=== PATIENT | female | born 1955 | race Caucasian/White ===

== ENCOUNTER 2016-11-04 20:55 | Emergency (ER) | payer MEDICAID, OTHER ==
[~2016-11-04] VITALS: Ht 157.5 cm; Wt 55.3 kg
[~2016-11-04 20:55] MED LIST: LEVO0.124 PO; MEDS FOR DEPRESSION
[2016-11-04 21:49] VITALS: BP 156/99
--- NOTE | 2016-11-04 23:10 | NUR ---
Patient to bed 02.
--- NOTE | 2016-11-04 23:11 | NUR ---
PT PICKED DAVINA 2 WEEKS AGO AND HAS SPLINTERS ON TWO LEFT FINGERS AND RT RING FINGER AND THEY ARE VERY PAINFUL MEDICAL HX; HYPOTHYROID AND GASTRITIS
[2016-11-04] MEDS ORDERED: LIDOCAINE 1% 500 MG/50 ML VIAL INJ ONE (23:15)
--- NOTE | 2016-11-04 23:15 | NUR ---
Dr. Dominguez evaluating patient at bedside.
[2016-11-05 00:29] VITALS: BP 136/89
--- NOTE | 2016-11-05 00:29 | NUR ---
Patient discharged with v/s stable. Written and verbal after care instructions given and explained. Patient alert, oriented and verbalized understanding of instructions. Ambulatory with steady gait. All questions addressed prior to discharge. ID band removed. Patient advised to follow up with PMD. Rx of MOTRIN 800MG AND BACTRIM DS given. Patient educated on indication of medication including possible reaction and side effects. Opportunity to ask questions provided and answered.
== END 2016-11-05 00:29 | disposition home or self-care (01) ==
LOC: MED 20:55
DX: S60.453A Superficial foreign body of left middle finger, initial encounter (principal); S60.455A Superficial foreign body of left ring finger, initial encounter; S60.454A Superficial foreign body of right ring finger, initial encounter; E03.9 Hypothyroidism, unspecified; W45.8XXA Other foreign body or object entering through skin, initial encounter; Y93.89 Activity, other specified; Y92.89 Other specified places as the place of occurrence of the external cause; Y99.8 Other external cause status
CPT/HCPCS: 99284; J2001

== ENCOUNTER 2016-11-08 15:19 | Emergency (ER) | payer MEDICAID ==
[~2016-11-08] VITALS: Ht 154.9 cm; Wt 55.4 kg
[~2016-11-08 15:19] MED LIST changes: -LEVO0.124 PO; +SYNTHROID0.125 M1 PO
[2016-11-08 15:27] VITALS: BP 118/57
--- NOTE | 2016-11-08 17:25 | NUR ---
61/F PRESENT TO ER C/O BILATERAL HAND PAIN x 4 DAYS. PT STATES SHE GOT SPLINTERS 4 DAYS AGO. PT IS TAKING PAIN MEDS IBUPROFEN AND ABX SEPTRA AT THIS TIME.PT AAOX4;NO ACUTE DISTRESS NOTED AT THIS TIME;SKIN WARM TO TOUCH;HOB ELEVATED;NEEDS ATTENDED;SAFETY PRECAUTION INSTITUTED; MADE AWARE OF PT'S CONDITION.
--- NOTE | 2016-11-08 17:30 | NUR ---
DR JEAN-BAPTISTE AT BEDSIDE
[2016-11-08] MEDS ORDERED: HYDROcodone/APAP 5/325 MG 1 TAB TAB PO ONE (17:35)
[2016-11-08 18:10] VITALS: BP 116/56
== END 2016-11-08 18:10 | disposition home or self-care (01) ==
LOC: MED 15:19
DX: G62.9 Polyneuropathy, unspecified (principal); R03.0 Elevated blood-pressure reading, without diagnosis of hypertension

== ENCOUNTER 2016-11-17 11:53 | Emergency (ER) | payer MEDICAID ==
[~2016-11-17] VITALS: Ht 157.5 cm; Wt 54.9 kg
[~2016-11-17 11:53] MED LIST changes: +LEVO0.124 PO; -SYNTHROID0.125 M1 PO
[2016-11-17 12:05] VITALS: BP 118/75
--- NOTE | 2016-11-17 12:12 | NUR ---
Dr. Butterfield evaluating patient in OF.
--- NOTE | 2016-11-17 12:23 | NUR ---
Patient taken to XRAY from ED lobby via wheelchair by tech.
[2016-11-17 12:39] LABS: BASOPHILS # (AUTO) 0.1 K/uL (0.00-0.22); BASOPHILS % (AUTO) 1.2 % (0.0-2.0); EOSINOPHILS # (AUTO) 0.1 K/uL (0-0.4); EOSINOPHILS % (AUTO) 1.9 % (0.0-4.0); HEMATOCRIT 34.4 % (36-48); HEMOGLOBIN 11.4 g/dL (12.0-16.0); LYMPHOCYTES # (AUTO) 1.3 K/uL (2.5-16.5); LYMPHOCYTES % (AUTO) 23.7 % (20.5-51.1); MEAN CORPUSCULAR HEMOGLOBIN 29 pg (27-31); MEAN CORPUSCULAR HGB CONC 33 g/dL (33-37); MEAN CORPUSCULAR VOLUME 88 fL (80-94); MONOCYTES # (AUTO) 0.4 K/uL (0.8-1.0); MONOCYTES % (AUTO) 7.1 % (1.7-9.3); NEUTROPHILS # (AUTO) 3.8 K/uL (1.8-7.7); NEUTROPHILS % (AUTO) 66.1 % (42.2-75.2); PLATELET COUNT (AUTO) 343 K/uL (140-450); RED CELL DISTRIBUTION WIDTH 14.4 % (11.6-13.7); WHITE BLOOD COUNT (AUTO) 5.7 K/uL (4.8-10.8)
[2016-11-17 12:49] LABS: ANION GAP 12.5 (8-16); CALCIUM 8.3 mg/dL (8.5-10.1); CARBON DIOXIDE 23.8 mmol/L (21-32); CREATININE 0.8 mg/dL (0.6-1.3); POTASSIUM 3.3 mmol/L (3.5-5.1)
[2016-11-17 12:54] LABS: INR 1.1 (0.8-1.2); PARTIAL THROMBOPLASTIN TIME 25.2 secs (22-35.6); PROTHROMBIN TIME 10.4 secs (10.8-13.4)
[2016-11-17 12:55] LABS: ALBUMIN 3.3 g/dL (3.4-5.0); TOTAL BILIRUBIN 0.3 mg/dL (0.0-1.0); TOTAL PROTEIN, SERUM 6.9 g/dL (6.4-8.2)
--- NOTE | 2016-11-17 13:09 | NUR ---
PT AMBULATED TO BED 8 AT THIS TIME.
--- NOTE | 2016-11-17 13:12 | NUR ---
61F BIB FAMILY C/O RT RING (4TH) FINGER/ LEFT (3/4TH) MIDDLE & RING FINGER S/P PICKING DAVINA X 1 MONTH AGO; PT C/O THROBBING PAIN, NON-RADIATING, 10/10 X 1 MONTH; LEFT/RT CAP REFILLS < 3 SECONDS, BL RADIAL PULSES PALPABLE, NO LOSS OF SENSATIONS TO BL HANDS AT THIS TIME; REDNESS/MILD SWELLING NOTED TO SITES AT THIS TIME; PT A&OX4, BL LUNG SOUNDS CLEAR, RR EVEN/UNLABORED, SKIN IS WARM/DRY AT THIS TIME; PT DENIES FEVER, SOB, N/V/D AT THIS TIME; PT RESTING IN BED W/ HOB ELEVATED AND IN LOWEST POSITION; POSITIONED FOR COMFORT; FAMILY AT BEDSIDE. ER MD MADE AWARE OF STATUS. WILL CONTINUE TO MONITOR.
[2016-11-17 14:08] LABS: APPEARANCE,URINE CLEAR (CLEAR); BILIRUBIN,URINE NEGATIVE (NEGATIVE); BLOOD, URINE TRACE-L (NEGATIVE); COLOR,URINE YELLOW (YELLOW); LEUKOCYTE ESTERASE ,URINE NEGATIVE (NEGATIVE); NITRITE, URINE NEGATIVE (NEGATIVE); PROTEIN,URINE NEGATIVE (NEGATIVE); UGLUCOSE NEGATIVE (NEGATIVE); UROBILINOGEN,URINE 0.2 EU/dL (0.2 - 1)
[2016-11-17 14:14] VITALS: BP 130/87
--- NOTE | 2016-11-17 14:14 | NUR ---
Patient discharged with v/s stable. Written and verbal after care instructions given and explained. Patient alert, oriented and verbalized understanding of instructions. Ambulatory with steady gait. All questions addressed prior to discharge. ID band removed. Patient advised to follow up with PMD. Rx of TRAMADOL HYDROCHLORIDE 50MG TAB given. Patient educated on indication of medication including possible reaction and side effects. Opportunity to ask questions provided and answered.
[2016-11-17 14:26] LABS: BACTERIA,URINE 0-2 (RARE) /HPF (None Seen); RBC,URINE NONE SEEN /HPF (0-5)
[2016-11-17 14:27] LABS: SQUAMOUS EPITHELIAL CELL,UR 0-3 (FEW) /LPF (0-3 (FEW)); WBC,URINE 0-5 (RARE) /HPF (0-5)
== END 2016-11-17 14:14 | disposition home or self-care (01) ==
LOC: MED 11:53
DX: M79.642 Pain in left hand (principal); M79.641 Pain in right hand; E03.9 Hypothyroidism, unspecified; F32.9 Major depressive disorder, single episode, unspecified
CPT/HCPCS: 36415; 80053; 81001; 82150; 82553; 83690; 83880; 84484; 85025; 85610; 85651; 85730; 93005; 99285

== ENCOUNTER 2024-04-07 15:11 | Inpatient (IN) | payer MEDICARE, MEDICAID ==
[~2024-04-07] VITALS: Ht 154.9 cm; Wt 44.9 kg
[2024-04-07 15:41] VITALS: BP 108/60; PULSE 74; RESP 18; TEMP 98; O2SAT 99
[2024-04-07 16:28] LABS: BASOPHILS % (AUTO) 0.5 % (0.0-2.0); EOSINOPHILS % (AUTO) 0.5 % (0.0-4.0); HEMOGLOBIN 11.3 g/dL (12.0-16.0); LYMPHOCYTES # (AUTO) 1.5 K/uL (2.5-16.5); MEAN CORPUSCULAR HEMOGLOBIN 29 pg (27-31); MEAN CORPUSCULAR HGB CONC 33 g/dL (33-37); MEAN CORPUSCULAR VOLUME 88.4 fL (80-94); MONOCYTES # (AUTO) 0.7 K/uL (0.8-1.0); MONOCYTES % (AUTO) 7.7 % (1.7-9.3); NEUTROPHILS # (AUTO) 6.7 K/uL (1.8-7.7); NEUTROPHILS % (AUTO) 74.3 % (42.2-75.2); PLATELET COUNT (AUTO) 242 K/uL (140-450); RED BLOOD CELL COUNT(AUTO) 3.84 MIL/uL (4.20-5.40); RED CELL DISTRIBUTION WIDTH 16.3 % (11.6-13.7)
[2024-04-07] MEDS: NACL 0.9% 1,000 ML IV ONE (16:28)
[2024-04-07 16:30] LABS: APPEARANCE,URINE CLEAR (CLEAR); BILIRUBIN,URINE NEGATIVE (NEGATIVE); BLOOD, URINE TRACE-I (NEGATIVE); COLOR,URINE YELLOW (YELLOW); LEUKOCYTE ESTERASE ,URINE 1+ (NEGATIVE); NITRITE, URINE NEGATIVE (NEGATIVE); PH,URINE 6.5 (5.0-9.0); PROTEIN,URINE NEGATIVE (NEGATIVE); UGLUCOSE NEGATIVE (NEGATIVE); UROBILINOGEN,URINE 0.2 EU/dL (0.2 - 1)
[2024-04-07 16:48] LABS: BACTERIA,URINE 1+ /HPF (None Seen); MUCUS,URINE 1+ /LPF (None Seen); SQUAMOUS EPITHELIAL CELL,UR 4-10 (MOD) /LPF (0-3 (FEW))
[2024-04-07 16:59] LABS: ALBUMIN 3.7 g/dL (3.4-5.0); ANION GAP 14.2 (8-16); CALCIUM 9.4 mg/dL (8.5-10.1); CREATININE 0.6 mg/dL (0.6-1.3); POTASSIUM 3.2 mmol/L (3.5-5.1); TOTAL BILIRUBIN 0.4 mg/dL (0.0-1.0); TOTAL PROTEIN, SERUM 7.6 g/dL (6.4-8.2)
[2024-04-07 19:24] VITALS: O2SAT 97
[2024-04-07] MEDS ORDERED: MAGNESIUM OXIDE 400 MG TAB PO PRN (22:15)
[2024-04-07] MEDS ORDERED: KCL 20 MEQ IN 100 mL PREMIX 200 ML IV PRN (22:15)
[2024-04-07] MEDS ORDERED: MORPHINE SULFATE 4 MG/ML SYR IVP PRN (22:15)
[2024-04-07] MEDS ORDERED: ONDANSETRON 4 MG/2 ML VIAL IVP PRN (22:15)
[2024-04-07] MEDS ORDERED: MAG SULF 2000 MG/WATER PREMIX 50 ML IV PRN (22:15)
[2024-04-07] MEDS: NACL 0.9% 1,000 ML IV SCH (22:15)
[2024-04-07] MEDS ORDERED: LEVO0.155 PO (22:24)
[2024-04-07] MEDS ORDERED: SUCR1TAB6 PO (22:24)
[2024-04-07] MEDS ORDERED: PANT40EC PO (22:24)
[2024-04-07 23:00] VITALS: BP 126/51; PULSE 76; RESP 18; TEMP 99; O2SAT 100
[2024-04-07] MEDS: POTASSIUM CHLORIDE 10 MEQ TABER PO PRN (23:21)
[2024-04-08 04:00] VITALS: BP 118/56; PULSE 75; RESP 18; TEMP 98.5; O2SAT 100
[2024-04-08 06:59] LABS: BASOPHILS % (AUTO) 0.7 % (0.0-2.0); EOSINOPHILS # (AUTO) 0.1 K/uL (0-0.4); HEMATOCRIT 30.5 % (36-48); HEMOGLOBIN 10.1 g/dL (12.0-16.0); LYMPHOCYTES # (AUTO) 1.1 K/uL (2.5-16.5); LYMPHOCYTES % (AUTO) 24.4 % (20.5-51.1); MEAN CORPUSCULAR HEMOGLOBIN 29 pg (27-31); MEAN CORPUSCULAR HGB CONC 33 g/dL (33-37); MEAN CORPUSCULAR VOLUME 87.9 fL (80-94); MONOCYTES # (AUTO) 0.5 K/uL (0.8-1.0); NEUTROPHILS # (AUTO) 2.9 K/uL (1.8-7.7); NEUTROPHILS % (AUTO) 62.9 % (42.2-75.2); PLATELET COUNT (AUTO) 220 K/uL (140-450); RED BLOOD CELL COUNT(AUTO) 3.47 MIL/uL (4.20-5.40); RED CELL DISTRIBUTION WIDTH 16.1 % (11.6-13.7); WHITE BLOOD COUNT (AUTO) 4.7 K/uL (4.8-10.8)
[2024-04-08 07:07] LABS: ANION GAP 12.1 (8-16); CALCIUM 8.4 mg/dL (8.5-10.1); CARBON DIOXIDE 22.9 mmol/L (21-32); CREATININE 0.6 mg/dL (0.6-1.3)
[2024-04-08 07:12] LABS: MAGNESIUM 1.8 mg/dL (1.8-2.4); PHOSPHORUS 3.4 mg/dL (2.5-4.9)
[2024-04-08 08:00] VITALS: BP 101/51; PULSE 55; RESP 18; TEMP 98.1; O2SAT 100
[2024-04-08 12:00] VITALS: BP 111/57; PULSE 67; RESP 18; TEMP 98.3; O2SAT 100
[2024-04-08 16:00] VITALS: BP 114/59; PULSE 71; RESP 18; TEMP 97.8; O2SAT 99
[2024-04-08] MEDS ORDERED: SODIUM PHOSPHATE 118 ML ENEM RC PRN (19:55)
[2024-04-08 20:00] VITALS: BP 113/59; PULSE 68; RESP 18; TEMP 98.1; O2SAT 100
[2024-04-09 04:00] VITALS: BP 108/54; PULSE 59; RESP 18; TEMP 97; O2SAT 98
[2024-04-09 06:39] LABS: BASOPHILS % (AUTO) 0.9 % (0.0-2.0); EOSINOPHILS # (AUTO) 0.1 K/uL (0-0.4); EOSINOPHILS % (AUTO) 2.7 % (0.0-4.0); HEMATOCRIT 32.3 % (36-48); HEMOGLOBIN 10.8 g/dL (12.0-16.0); LYMPHOCYTES # (AUTO) 1.2 K/uL (2.5-16.5); MEAN CORPUSCULAR HEMOGLOBIN 29 pg (27-31); MEAN CORPUSCULAR HGB CONC 33 g/dL (33-37); MEAN CORPUSCULAR VOLUME 88.3 fL (80-94); MONOCYTES # (AUTO) 0.4 K/uL (0.8-1.0); MONOCYTES % (AUTO) 8.3 % (1.7-9.3); NEUTROPHILS # (AUTO) 3.4 K/uL (1.8-7.7); NEUTROPHILS % (AUTO) 65.1 % (42.2-75.2); PLATELET COUNT (AUTO) 231 K/uL (140-450); RED BLOOD CELL COUNT(AUTO) 3.66 MIL/uL (4.20-5.40); RED CELL DISTRIBUTION WIDTH 16.2 % (11.6-13.7); WHITE BLOOD COUNT (AUTO) 5.2 K/uL (4.8-10.8)
[2024-04-09 06:41] LABS: ANION GAP 13.2 (8-16); CALCIUM 9.1 mg/dL (8.5-10.1); CARBON DIOXIDE 22.5 mmol/L (21-32); CREATININE 0.6 mg/dL (0.6-1.3); POTASSIUM 3.7 mmol/L (3.5-5.1)
[2024-04-09 06:53] LABS: MAGNESIUM 1.8 mg/dL (1.8-2.4); PHOSPHORUS 4.4 mg/dL (2.5-4.9)
[2024-04-09 08:00] VITALS: PULSE 62; RESP 18; O2SAT 99
[2024-04-09] MEDS: PANTOPRAZOLE 40 MG INJ VIAL IVP SCH (08:37)
[2024-04-09 11:28] VITALS: PULSE 73; RESP 20; O2SAT 98
[2024-04-09 12:51] VITALS: BP 107/85; PULSE 62; RESP 18; TEMP 97.5
== END 2024-04-09 16:42 | disposition home or self-care (01) | DRG 389 ==
LOC: MED 15:11 → MTU 22:11
PROVIDERS: ADMIT Hospitalist; ATTEND Hospitalist
DX: K56.600 Partial intestinal obstruction, unspecified as to cause (principal); R71.0 Precipitous drop in hematocrit; K52.9 Noninfective gastroenteritis and colitis, unspecified; K21.9 Gastro-esophageal reflux disease without esophagitis; E03.9 Hypothyroidism, unspecified; K27.9 Peptic ulcer, site unspecified, unspecified as acute or chronic, without hemorrhage or perforation; Z79.899 Other long term (current) drug therapy; Z90.49 Acquired absence of other specified parts of digestive tract
CPT/HCPCS: 36415; 80048; 80053; 81001; 83735; 84100; 85025; 87081; 87086; 96360; 99285; J2470; Q9967